=== PATIENT | female | born 1970 | race Caucasian/White ===

== ENCOUNTER 2016-10-07 15:12 | Emergency (ER) | payer OTHER ==
[~2016-10-07] VITALS: Wt 88.0 kg
[~2016-10-07 15:12] MED LIST: ACET1TAB40 PO; BENA20TA65 PO; IBUP-1542 PO; PANT40TA3 PO
[2016-10-07] MEDS ORDERED: ONDANSETRON 4 MG INJ IV STA (15:53)
[2016-10-07] MEDS ORDERED: CEFTRIAXONE 1 GM/50 ML (PMX) 50 ML IVPB STA (15:53)
[2016-10-07] MEDS ORDERED: morphine 2 MG INJ IV STA (15:53)
[2016-10-07] MEDS ORDERED: metroNIDAZOLE 500 MG/NS (PMX) 100 ML IVPB STA (15:53)
[2016-10-07] MEDS ORDERED: SOD CHLORIDE 0.9% 1,000 ML IV STA (15:53)
--- NOTE | 2016-10-07 16:06 | ERD ---
ER Documentation Chief Complaint Date/Time DATE: 10/07/16 TIME: 16:02 Chief Complaint lower abd pain HPI 46-year-old female history of hypertension, status post "tummy tuck" done in [place] in September 172016 comes in with abdominal pain for the past 2 days. Patient had the surgical procedure done on September 17 first, then about 10 days ago she went back to [place] for staple removal. Over the last 2 days she states that she has sharp pain that starts in the mid abdomen radiates diffusely and goes down her right upper leg. Patient states that they had created a new bellybutton, this was sutured however at one point it had opened and they remove the sutures. She has not noted any purulent drainage. She has been taking tramadol for the pain, which has helped but the pain has continued. Patient has not noticed any fevers, chills, vomiting. She reports positive flatulence. No blood in stools. ROS All systems reviewed and are negative except as per history of present illness. Medications Home Meds Active Scripts Ferrous Sulfate* (Ferrous Sulfate*) 325 Mg Tabec, 325 MG PO BID, #60 TAB Prov:ARTHUR PHILLIPS PA-C 10/07/16 Hydrocodone/Acetaminophen ([place] 5-325 Tablet) 1 Each Tablet, 1 TAB PO Q6H Y for PAIN, #15 TAB Prov:ARTHUR PHILLIPS PA-C 10/07/16 Metronidazole* (Flagyl*) 500 Mg Tablet, 500 MG PO TID for 7 Days, TAB Prov:ARTHUR PHILLIPS PA-C 10/07/16 Sulfamethoxazole/Trimethoprim* (Bactrim Ds* Tablet) 1 Each Tablet, 1 TAB PO BID , #14 TAB Prov:ARTHUR PHILLIPS PA-C 10/07/16 Pantoprazole* (Protonix*) 40 Mg Tablet.dr, 40 MG PO DAILY, #30 TAB Prov:VALENTINA BAUMANN MD 06/11/15 Acetaminophen-Codeine* (Acetaminophen-Cod #3*) 300-30 Mg Tab, 1 TAB PO Q4H Y for PAIN, #14 TAB Prov:VALENTINA BAUMANN MD 06/11/15 Benazepril Hcl* (Lotensin*) 20 Mg Tablet, 20 MG PO DAILY, #30 TAB Prov:VALENTINA BAUMANN MD 06/11/15 Ibuprofen* (Motrin*) 600 Mg Tab, 600 MG PO BID, #30 TAB 0 Refills Prov:BETH THOMPSON MARTHA 04/26/15 Allergies Allergies: Coded Allergies: No Known Allergy (Unverified , 07/19/13) PMhx/Soc History of Surgery: No Anesthesia Reaction: No Hx Neurological Disorder: No Hx Respiratory Disorders: No Hx Cardiac Disorders: No Hx Psychiatric Problems: No Hx Miscellaneous Medical Probl: No Hx Alcohol Use: No Hx Substance Use: No Hx Tobacco Use: No Smoking Status: Never smoker Physical Exam Vitals Vital Signs Date Time Temp Pulse Resp B/P Pulse Ox O2 Delivery O2 Flow Rate FiO2 10/07/16 15:15 98.9 78 20 155/79 97 Physical Exam General: Well-developed, well-nourished. The patient appears in no acute distress. HEENT: Head is normocephalic, atraumatic. No scleral icterus. Pupils are equal , round, and reactive. Oral mucous membranes are moist. No pharyngeal erythema. Neck: Supple. Nontender. Lungs: Clear to auscultation. Normal air movement. Heart: Regular rate and rhythm. S1 and S2 are normal. No murmurs, gallops, or rubs. Abdomen: Large scar from incision that goes from above the ASIS on the right side, all the way across the left side. There is no dehiscence, there are superficial seromas, there is one on the left lower quadrant region. Incision is clean, dry. There is also an opening, where the umbilicus was reconstructed. The depth is approximately 3 cm, the diameter is with a base of 1.5 cm, and superficially 2.5 cm. It goes to the fascia. There is no warmth or erythema, abdomen is soft. There is tenderness over the mid abdomen. No peritoneal signs, guarding. Extremities: No clubbing or cyanosis. Normal pulses. Moving extremities x 4. No weakness. Neurologic: Alert and oriented 3. No focal deficits. Skin: Normal turgor. No rash or lesions. Result Diagram: 10/07/16 1610 10/07/16 1610 Results 24 hrs Laboratory Tests Test 10/07/16 16:10 White Blood Count 6.710^3/ul Red Blood Count 3.2610^6/ul Hemoglobin 9.2g/dl Hematocrit 28.7% Mean Corpuscular Volume 88.0fl Mean Corpuscular Hemoglobin 28.2pg Mean Corpuscular Hemoglobin Concent 32.1g/dl Red Cell Distribution Width 14.6% Platelet Count 95921^3/UL Mean Platelet Volume 9.9fl Neutrophils % 64.8% Lymphocytes % 21.8% Monocytes % 8.6% Eosinophils % 3.9% Basophils % 0.3% Neutrophils # 4.310^3/ul Lymphocytes # 1.510^3/ul Monocytes # 0.610^3/ul Eosinophils # 0.310^3/ul Basophils # 0.010^3/ul Nucleated Red Blood Cells # 0.010^3/ul Urine Color YELLOW Urine Clarity CLOUDY Urine pH 5.0 Urine Specific [place] 1.021 Urine Ketones NEGATIVEmg/dL Urine Nitrite NEGATIVEmg/dL Urine Bilirubin NEGATIVEmg/dL Urine Urobilinogen NEGATIVEmg/dL Urine Leukocyte Esterase NEGATIVELeu/ul Urine Microscopic RBC 2/HPF Urine Microscopic WBC 1/HPF Urine Squamous Epithelial Cells MODERATE/HPF Urine Mucus FEW/HPF Urine Hemoglobin NEGATIVEmg/dL Urine Glucose NEGATIVEmg/dL Urine Total Protein NEGATIVEmg/dl Sodium Level 142mmol/L Potassium Level 3.8mmol/L Chloride Level 103mmol/L Carbon Dioxide Level 27mmol/L Anion Gap 16 Blood Urea Nitrogen 10mg/dl Creatinine 0.62mg/dl Glucose Level 123mg/dl Calcium Level 9.1mg/dl Total Bilirubin 0.6mg/dl Direct Bilirubin 0.00mg/dl Indirect Bilirubin 0.6mg/dl Aspartate Amino Transf (AST/SGOT) 23IU/L Alanine Aminotransferase (ALT/SGPT) 31IU/L Alkaline Phosphatase 86IU/L Total Protein 6.8g/dl Albumin 3.5g/dl Globulin 3.30g/dl Albumin/Globulin Ratio 1.06 Lipase 32U/L Current Medications Medications (Trade) Dose Ordered Sig/Alvaro Route PRN Reason Start Time Stop Time Status Last Admin Dose Admin Sodium Chloride (NS) 1,000 ml @ 1,000 mls/hr Q1H STAT IV 10/07/16 15:53 10/07/16 16:52 DC 10/07/16 16:13 Morphine Sulfate (morphine) 2 mg ONCE STAT IV 10/07/16 15:53 10/07/16 15:55 DC 10/07/16 16:14 Ondansetron HCl 4 mg 4 mg ONCE STAT IV 10/07/16 15:53 10/07/16 15:55 DC 10/07/16 16:13 Ceftriaxone Sodium 50 ml @ 100 mls/hr ONCE STAT IVPB 10/07/16 15:53 10/07/16 16:22 DC 10/07/16 16:13 Metronidazole (Flagyl 500 Mg (Pmx)) 100 ml @ 100 mls/hr ONCE STAT IVPB 10/07/16 15:53 10/07/16 16:52 DC 10/07/16 16:48 IV Flush 10 ml 10 ml STK-MED ONCE .ROUTE 10/07/16 17:51 10/07/16 17:52 DC Sodium Chloride (NS) 100 ml @ ud STK-MED ONCE .ROUTE 10/07/16 17:51 10/07/16 17:52 DC Iohexol (Omnipaque 300mg/ ml) 150 ml STK-MED ONCE .ROUTE 10/07/16 17:51 10/07/16 17:52 DC Procedures/MDM ED course: Patient was given morphine 2 mg, Zofran 4 mg IV fluid bolus of normal saline 1 L. She was started on Rocephin 1 g IV and Flagyl 500 mg IV. MDM: 46 yo female comes in with abdominal pain s/p edwar galarza, comes in with abdominal pain for 2 days. Patient has a very large abdominal incision site that is healed, there is a small seroma that is seen anteriorly, I suspect that this is superficial. She also has dehiscence of the umbilical area, they had tried to reconstruct a new umbilicus however the wound has dehisced. Does go to the fascia and I do not see any signs of deep dehiscence, intra-abdominal abscess, cellulitis, sepsis. CT of abdomen and pelvis was ordered, however currently pending and will be signed out to Los Chakraborty PA-C. She has not a follow-up appointment with her surgeon on Tuesday which is 2 days from now, she was advised to keep her appointment for reevaluation. Departure Diagnosis: Primary Impression: Postoperative external wound disruption Additional Impression: Abdominal pain Condition: ARTHUR Abebe PA-C Oct 07, 2016 16:06
[2016-10-07 16:20] LABS: ADD SCAN DIFF NO
[2016-10-07 16:29] LABS: ADD UMIC YES; BASOPHILS % 0.3 % (0.0-2.0); EOSINOPHILS # 0.3 10^3/ul (0.0-0.5); EOSINOPHILS % 3.9 % (0.0-7.0); HEMATOCRIT 28.7 % (37.0-47.0); HEMOGLOBIN 9.2 g/dl (12.0-16.0); LYMPHOCYTES # 1.5 10^3/ul (0.8-2.9); LYMPHOCYTES % 21.8 % (15.0-51.0); MEAN CORPUSCULAR HEMOGLOBIN 28.2 pg (29.0-33.0); MEAN CORPUSCULAR HGB CONC 32.1 g/dl (32.0-37.0); MEAN PLATELET VOLUME 9.9 fl (7.4-10.4); MONOCYTE # 0.6 10^3/ul (0.3-0.9); MONOCYTES % 8.6 % (0.0-11.0); NEUTROPHIL # 4.3 10^3/ul (1.6-7.5); NEUTROPHILS % 64.8 % (39.0-77.0); PLATELET COUNT 204 10^3/UL (140-415); RED BLOOD COUNT 3.26 10^6/ul (4.20-5.40); RED CELL DISTRIBUTION WIDTH 14.6 % (11.5-14.5); UR ASCORBIC ACID 20 mg/dL (NEGATIVE); UR BILIRUBIN (Dip) NEGATIVE (NEGATIVE); UR BLOOD (Dip) NEGATIVE (NEGATIVE); UR CLARITY CLOUDY (CLEAR); UR COLOR YELLOW (YELLOW); UR GLUCOSE (Dip) NEGATIVE (NEGATIVE); UR KETONES (Dip) NEGATIVE (NEGATIVE); UR LEUKOCYTE ESTERASE (Dip) NEGATIVE Leu/ul (NEGATIVE); UR MUCUS FEW /HPF (NONE SEEN); UR NITRITE (Dip) NEGATIVE (NEGATIVE); UR RBC 2 /HPF (0-5); UR SPECIFIC GRAVITY (Dip) 1.021 (1.003-1.030); UR SQUAMOUS EPITHELIAL CELL MODERATE /HPF (FEW); UR TOTAL PROTEIN (Dip) NEGATIVE (NEGATIVE); UR UROBILINOGEN (Dip) NEGATIVE (NEGATIVE); WHITE BLOOD COUNT 6.7 10^3/ul (4.8-10.8)
[2016-10-07 16:45] LABS: ALBUMIN 3.5 g/dl (3.3-4.9); ALBUMIN/GLOBULIN RATIO 1.06; BILIRUBIN,INDIRECT 0.6 mg/dl (0-1.1); BILIRUBIN,TOTAL 0.6 mg/dl (0.2-1.3); CALCIUM 9.1 mg/dl (8.4-10.2); CREATININE 0.62 mg/dl (0.44-1.00); POTASSIUM 3.8 mmol/L (3.5-5.1); TOTAL PROTEIN 6.8 g/dl (6.1-8.1)
[2016-10-07] MEDS ORDERED: IOHEXOL 300MG/ML 150 ML BTL ONE (17:51)
[2016-10-07] MEDS ORDERED: SOD CHLORIDE 0.9% 100 ML ONE (17:51)
[2016-10-07] MEDS ORDERED: FER325 PO (18:05)
[2016-10-07] MEDS ORDERED: SULF1TAB31 PO (18:05)
[2016-10-07] MEDS ORDERED: HYDR-906 PO (18:05)
[2016-10-07] MEDS ORDERED: METR500T PO (18:05)
--- NOTE | 2016-10-07 18:47 | RADRPT ---
PROCEDURE: CT abdomen and pelvis with IV contrast. CLINICAL INDICATION: Abdomen pain. TECHNIQUE: CT scan of the abdomen and pelvis was performed on a [address] scanner. The patient is scanned following the uncomplicated IV administration of 100 cc Omnipaque-300. Coronal and sagit krysta reformatted images were obtained from the axial source images. Images were reviewed on a [employer] PACS workstation. Total radiation dose: Total CTDIvol: 20.90 mGy. Total DLP: 1076 mGy-cm. One or more of the follow ing dose reduction techniques were used: automated exposure control, adjustment of the mA and/or kV according to patient size, or use of iterative reconstruction technique. COMPARISON: None available. FINDINGS: CT abdomen: The lung bases are clear. The heart is not enlarged without pericardial thickening or effusion.. There is mild hepatosplenomegaly. There is mild fatty liver without focal mass or intrahepatic bili mason dilatation. The stomach is partially collapsed but is grossly unremarkable. The pancreas as visualized is normal. This post cholecystectomy and there is no evidence of biliary dilatation. The adrenal glands are symmetrical and normal. The kidneys are symmetrically normal bilaterally. N o renal calculus or obstructive uropathy or mass lesion is seen.. The aorta is normal in caliber. There is no retroperitoneal lymphadenopathy. The jero hepatis reg ion is clear. The bowel and mesentery, as visualized, are equally unremarkable. There is 7.7 cm x 2.4 cm x 5.3 cm( CC x AP x TR) fluid collection in the mid anterior abdomen wall of the abdomen. CT pelvis: There has 7.5 cm x 2.6 cm x 9.2 cm( CC x AP x TR) fluid collection in the mid anterior abdomen wall of the pelvis. The appendix is normal in the right lower quadrant. The small bowel loops situated within the pelvis are unremarkable. The female pelvic organs are normal. The pelvic sidewalls and inguinal regions are clear. No mass, lymphadenopathy or free fluid is seen. No acute inflammation seen. The urinary bladder is normal. The surrounding osseous structures are unremarkable. No osteolytic or osteoblastic lesion is detect ed. IMPRESSION: 1. 7.7 cm x 2.4 cm x 5.3 cm( CC x AP x TR) fluid collection in the mid anterior abdomen wall of th e abdomen. 2. 7.5 cm x 2.6 cm x 9.2 cm( CC x AP x TR) fluid collection in the mid anterior abdomen wall of the pelvis. 3. Mild hepatomegaly splenomegaly. Mild fatty liver. 4. Status post cholecystectomy RPTAT: GG .Romeo Sharpe MD, Date Time Electronically viewed and signed by .Romeo Sharpe MD, on 10/07/2016 18:47 .Y/
--- NOTE | 2016-10-07 19:27 | EN ---
Date/Time of Note Date/Time of Note DATE: 10/07/16 TIME: 19:21 ER Progress Note Patient was signed out to me by KARLY Lebron pending CT abdomen and pelvis. See below ED COURSE: The patient was stable throughout ED course. I kept the patient and/or family informed of laboratory and diagnostic imaging results throughout the ED course. DIAGNOSTIC IMAGING: Read by radiologist. DIAGNOSTIC IMAGING REPORT Patient: BENITA CARRERA : 1970 Age: 46 Sex: F MR #: [id number] DOS: 10/07/16 1553 Ordering MD: ARTHUR LEBRON PA-C Location: [facility] Room/Bed: PROCEDURE: CT abdomen and pelvis with IV contrast. CLINICAL INDICATION: Abdomen pain. TECHNIQUE: CT scan of the abdomen and pelvis was performed on a [address] scanner. The patient is scanned following the uncomplicated IV administration of 100 cc Omnipaque-300. Coronal and sagittal reformatted images were obtained from the axial source images. Images were reviewed on a high-resolution PACS workstation. Total radiation dose: Total CTDIvol: 20.90 mGy. Total DLP: 1076 mGy-cm. One or more of the following dose reduction techniques were used: automated exposure control, adjustment of the mA and/or kV according to patient size, or use of iterative reconstruction technique. COMPARISON: None available. FINDINGS: CT abdomen: The lung bases are clear. The heart is not enlarged without pericardial thickening or effusion.. There is mild hepatosplenomegaly. There is mild fatty liver without focal mass or intrahepatic biliary dilatation. The stomach is partially collapsed but is grossly unremarkable. The pancreas as visualized is normal. This post cholecystectomy and there is no evidence of biliary dilatation. The adrenal glands are symmetrical and normal. The kidneys are symmetrically normal bilaterally. No renal calculus or obstructive uropathy or mass lesion is seen.. The aorta is normal in caliber. There is no retroperitoneal lymphadenopathy. The jero hepatis region is clear. The bowel and mesentery, as visualized, are equally unremarkable. There is 7.7 cm x 2.4 cm x 5.3 cm( CC x AP x TR) fluid collection in the mid anterior abdomen wall of the abdomen. CT pelvis: There has 7.5 cm x 2.6 cm x 9.2 cm( CC x AP x TR) fluid collection in the mid anterior abdomen wall of the pelvis. The appendix is normal in the right lower quadrant. The small bowel loops situated within the pelvis are unremarkable. The female pelvic organs are normal. The pelvic sidewalls and inguinal regions are clear. No mass, lymphadenopathy or free fluid is seen. No acute inflammation seen. The urinary bladder is normal. The surrounding osseous structures are unremarkable. No osteolytic or osteoblastic lesion is detected. IMPRESSION: 1. 7.7 cm x 2.4 cm x 5.3 cm( CC x AP x TR) fluid collection in the mid anterior abdomen wall of the abdomen. 2. 7.5 cm x 2.6 cm x 9.2 cm( CC x AP x TR) fluid collection in the mid anterior abdomen wall of the pelvis. 3. Mild hepatomegaly splenomegaly. Mild fatty liver. 4. Status post cholecystectomy RPTAT: GG .Romeo Sharpe MD, MD Date Time Electronically viewed and signed by .Romeo Sharpe MD, on 10/07/2016 18:47 .Y/ CC: ARTHUR LEBRON PA-C Patient is a 46-year-old female presents with lower abdominal pain. Workup was primarily completed by Arthur Lebron PA-C. She was signed out to me pending CT scan results. CT scan showed fluid collections in the mid anterior pelvis as well as abdomen. I discussed these findings with my supervising physician Dr. Stephenson. At this time, there is no indication for inpatient admission. Patient will be discharged home with antibiotics, iron supplements and pain medications as written by Arthur Lebron. Low suspicion for deep space infection, deep abscess, fistula, deep wound dehiscence. She was encouraged to follow-up with her surgeon. DISCHARGE: At this time, patient is stable for discharge and outpatient management. Patient was provided with a copy of all blood work and imaging studies obtained today. I have instructed the patient to follow-up with his/her primary care physician in 1-2 days. I have discussed with the patient the possibility of needing to see a specialist for further workup and imaging studies if symptoms persist. I have instructed the patient to promptly return to the ER for any new or worsening symptoms including increased pain, fever, nausea, vomiting, weakness or LOC. The patient and/or family expressed understanding of and agreement with this plan. All questions were answered. Home care instructions were provided. ELOISE GALLEGOS PA-C Oct 07, 2016 19:26
[2016-10-07 20:03] VITALS: BP 123/66; PULSE 70; RESP 22; TEMP 98.8
== END 2016-10-07 20:00 | disposition home or self-care (01) ==
LOC: FTE 15:12
DX: T81.31XA Disruption of external operation (surgical) wound, not elsewhere classified, initial encounter (principal); Y73.8 Miscellaneous gastroenterology and urology devices associated with adverse incidents, not elsewhere classified
CPT/HCPCS: 74177; 80053; 81001; 83690; 85025; J0696; J2270; J2405; J7030; Q9967; Z7610; 36415; 96374; 96375

== ENCOUNTER 2017-01-28 18:19 | Emergency (ER) | payer OTHER ==
[~2017-01-28] VITALS: Ht 152.4 cm; Wt 85.1 kg
[~2017-01-28 18:19] MED LIST changes: +FER325 PO; +HYDR-906 PO; +METR500T PO; +SULF1TAB31 PO
[2017-01-28 18:38] VITALS: Ht 152.4 cm; Wt 85.1 kg
[2017-01-28] MEDS ORDERED: IBUP-1542 PO (19:26)
[2017-01-28] MEDS ORDERED: SULF1TAB31 PO (19:26)
[2017-01-28] MEDS ORDERED: CEPH-443 PO (19:26)
--- NOTE | 2017-01-28 19:28 | ERD ---
ER Documentation Chief Complaint Chief Complaint wound discharge (pus like) on naval area HPI This 46-year-old female presents with some discharge and redness of her umbilicus. History significant for a abdominoplasty 6 months ago. She was fine up until a few days ago. She denies any fevers, vomiting, additional complaints. ROS All systems reviewed and are negative except as per history of present illness. Medications Home Meds Active Scripts Ibuprofen* (Motrin*) 600 Mg Tab, 600 MG PO Q6, #15 TAB Prov:VALENTINA BAUMANN MD 01/28/17 Sulfamethoxazole/Trimethoprim* (Bactrim Ds* Tablet) 1 Each Tablet, 1 TAB PO BID for 7 Days, #14 TAB Prov:VALENTINA BAUMANN MD 01/28/17 Cephalexin* (Keflex*) 500 Mg Capsule, 500 MG PO QID for 7 Days, CAP Prov:VALENTINA BAUMANN MD 01/28/17 Ferrous Sulfate* (Ferrous Sulfate*) 325 Mg Tabec, 325 MG PO BID, #60 TAB Prov:ARTHUR PHILLIPS PA-C 10/07/16 Hydrocodone/Acetaminophen ([place] 5-325 Tablet) 1 Each Tablet, 1 TAB PO Q6H Y for PAIN, #15 TAB Prov:ARTHUR PHILLIPS PA-C 10/07/16 Metronidazole* (Flagyl*) 500 Mg Tablet, 500 MG PO TID for 7 Days, TAB Prov:ARTHUR PHILLIPS PA-C 10/07/16 Sulfamethoxazole/Trimethoprim* (Bactrim Ds* Tablet) 1 Each Tablet, 1 TAB PO BID , #14 TAB Prov:ARTHUR PHILLIPS PA-C 10/07/16 Pantoprazole* (Protonix*) 40 Mg Tablet.dr, 40 MG PO DAILY, #30 TAB Prov:VALENTINA BAUMANN MD 06/11/15 Acetaminophen-Codeine* (Acetaminophen-Cod #3*) 300-30 Mg Tab, 1 TAB PO Q4H Y for PAIN, #14 TAB Prov:VALENTINA BAUMANN MD 06/11/15 Benazepril Hcl* (Lotensin*) 20 Mg Tablet, 20 MG PO DAILY, #30 TAB Prov:VALENTINA BAUMANN MD 06/11/15 Ibuprofen* (Motrin*) 600 Mg Tab, 600 MG PO BID, #30 TAB 0 Refills Prov:BETH THOMPSON PA-C 04/26/15 Allergies Allergies: Coded Allergies: No Known Allergy (Unverified , 07/19/13) PMhx/Soc History of Surgery: Yes (RT HAND CARPAL TUNNEL RELEASE//TUMMY TUCK ) Anesthesia Reaction: No Hx Neurological Disorder: No Hx Respiratory Disorders: No Hx Cardiac Disorders: Yes (HTN) Hx Psychiatric Problems: No Hx Miscellaneous Medical Probl: No (OA, GASTRITIS) Hx Alcohol Use: No Hx Substance Use: No Hx Tobacco Use: No Smoking Status: Never smoker Physical Exam Vitals Vital Signs Date Time Temp Pulse Resp B/P Pulse Ox O2 Delivery O2 Flow Rate FiO2 01/28/17 18:38 98.1 76 20 131/75 98 Physical Exam Const: [], [id number]. Head: Atraumatic Eyes: Normal Conjunctiva ENT: Normal External Ears, Nose and Mouth. Neck: Full range of motion..~ No meningismus. Resp: Clear to auscultation bilaterally Cardio: Regular rate and rhythm, no murmurs Abd: Soft, non tender, non distended. Normal bowel sounds Skin: No petechiae or rashes. Superficial redness and very superficial draining seroma of the umbilicus. There is no appreciable deep abdominal tenderness residual fluctuance. There is no rebound or significant induration. Back: No midline or flank tenderness Ext: No cyanosis, or edema Neur: Awake and alert Psych: Normal Mood and Affect Procedures/MDM She presents with signs and symptoms of a superficial infection of her umbilicus status post abdominoplasty 5 months ago. There is no signs or symptoms to suggest deep abdominal tenderness or complications such as abscess or sepsis. She will discharged home with prescription for Bactrim and Keflex instructions for wound care and primary care follow-up and return precautions. The patient was stable with no new complaints during the ER course. Clinically, there is no current evidence to suggest meningitis, sepsis, acute abdomen, pneumonia, acute coronary syndrome, pulmonary embolism, or any other emergent condition appearing to require further evaluation or hospitalization. The patient should certainly return for any new or worsening symptoms per the aftercare instructions. They should otherwise follow-up with her primary care doctor for reevaluation this week. Departure Diagnosis: Primary Impression: Encounter for wound re-check Condition: Stable Patient Instructions: Post Op Wound Check, Infection Additional Instructions: Cheque otro vez con tsang doctor primario en el proximo vila or regresa para mas o nueva simptomas- FIEBRE , VOMIT, MAS DOLOR. VALENTINA BAUMANN MD Jan 28, 2017 19:28
== END 2017-01-28 19:48 | disposition home or self-care (01) ==
LOC: FTE 18:19
DX: Z48.01 Encounter for change or removal of surgical wound dressing (principal); I10 Essential (primary) hypertension
CPT/HCPCS: 99284

== ENCOUNTER 2017-10-04 11:35 | Observation (INO) | END 2017-10-05 18:25 | disposition home or self-care (01) ==

== ENCOUNTER 2018-07-09 02:52 | Emergency (ER) | payer OTHER ==
[~2018-07-09] VITALS: Wt 86.8 kg
[~2018-07-09 02:52] MED LIST changes: -ACET1TAB40 PO; +BENA20TA4 PO; -BENA20TA65 PO; +ERGO500013 PO; -FER325 PO; -HYDR-906 PO; -IBUP-1542 PO; -METR500T PO; +OMEP20CA16 PO; -PANT40TA3 PO; -SULF1TAB31 PO
[2018-07-09] MEDS ORDERED: SOD CHLORIDE 0.9% 1,000 ML IV STA (03:39)
[2018-07-09] MEDS ORDERED: morphine 4 MG/ML VIAL IV STA (03:39)
[2018-07-09] MEDS ORDERED: ONDANSETRON 4 MG INJ IV STA (03:39)
[2018-07-09] MEDS ORDERED: IODIXANOL LOCM 100 ML BTL ONE (03:51)
[2018-07-09] MEDS ORDERED: SOD CHLORIDE 0.9% 100 ML ONE (03:51)
--- NOTE | 2018-07-09 04:35 | ERD ---
ER Documentation Chief Complaint Chief Complaint abd pain x 1 week, worse today HPI 47-year-old female presenting with abdominal pain that has been worsening over the past few days. She had an abdominoplasty a few years ago. Since then she has had problems with her umbilicus. She states that she is going back to her surgeon in [place] in a week to get her umbilicus fixed. For the past few days she has noticed some redness and pain around her umbilical area radiating to the sides of her lower abdomen. She does endorse nausea with subjective fevers and chills. No vomiting, diarrhea, constipation. Pain is constant, throbbing, 9 out of 10, without alleviating or exacerbating factors. ROS All systems reviewed and are negative except as per history of present illness. Medications Home Meds Active Scripts Cephalexin* (Keflex*) 500 Mg Capsule, 500 MG PO QID for 7 Days, CAP Prov:ESME ARNOLD MD 07/09/18 Sulfamethoxazole/Trimethoprim* (Bactrim Ds* Tablet) 1 Each Tablet, 1 TAB PO BID, #14 TAB Prov:ESME ARNOLD MD 07/09/18 Reported Medications Ergocalciferol (Vitamin D2) (VITAMIN D2) 50,000 Unit Capsule, 12617 UNIT PO EVERY TUESDAY, CAP 10/04/17 Omeprazole* (Omeprazole*) 20 Mg Capsule.dr, 20 MG PO DAILY, #30 CAP 10/04/17 Benazepril Hcl* (Benazepril Hcl*) 20 Mg Tablet, 20 MG PO DAILY, #30 TAB 10/04/17 Allergies Allergies: Coded Allergies: No Known Allergy (Unverified , 10/04/17) PMhx/Soc History of Surgery: Yes (CSECTION, CHOLECYSTECTOMY, TUMMY TUCK,CARPAL TUNNEL YANCI WRIST ) Anesthesia Reaction: No Hx Neurological Disorder: No Hx Respiratory Disorders: No Hx Cardiac Disorders: Yes (HTN) Hx Psychiatric Problems: No Hx Miscellaneous Medical Probl: No Hx Alcohol Use: No Hx Substance Use: No Hx Tobacco Use: No Smoking Status: Never smoker FmHx Family History: No diabetes Physical Exam Vitals Vital Signs Date Temp Pulse Resp B/P (MAP) Pulse Ox O2 O2 Flow FiO2 Time Delivery Rate 07/09/18 99.4 77 14 105/59 100 06:02 (74) 07/09/18 99.4 70 15 96/59 (71) 98 05:26 07/09/18 99.4 81 19 95/59 (71) 99 04:38 07/09/18 99.4 79 18 121/76 98 04:01 (91) 07/09/18 99.4 93 18 144/68 98 02:54 (93) Physical Exam Const: No acute distress Head: Atraumatic Eyes: Normal Conjunctiva ENT: Normal External Ears, Nose and Mouth. Neck: Full range of motion. No meningismus. Resp: Clear to auscultation bilaterally Cardio: Regular rate and rhythm, no murmurs Abd: Soft, non tender, non distended. Normal bowel sounds Skin: No petechiae or rashes Back: No midline or flank tenderness Ext: No cyanosis, or edema Neur: Awake and alert Psych: Normal Mood and Affect Result Diagram: 07/09/18 0345 07/09/18 0345 Results 24 hrs Laboratory Tests Test 07/09/18 03:40 07/09/18 03:45 07/09/18 03:50 Urine Color YELLOW Urine Clarity SLIGHTLY CLOUDY Urine pH 5.0 Urine Specific [place] 1.016 Urine Ketones NEGATIVE mg/dL Urine Nitrite NEGATIVE mg/dL Urine Bilirubin NEGATIVE mg/dL Urine Urobilinogen NEGATIVE mg/dL Urine Leukocyte Esterase NEGATIVE Claud[place]/ul Urine Microscopic RBC > 182 /HPF Urine Microscopic WBC 6 /HPF Urine Squamous Epithelial Cells FEW /HPF Urine Bacteria FEW /HPF Urine Granular Casts FEW /HPF Urine Mucus MODERATE /HPF Urine Hemoglobin 3+ mg/dL Urine Glucose NEGATIVE mg/dL Urine Total Protein NEGATIVE mg/dl White Blood Count 11.7 10^3/ul Red Blood Count 3.61 10^6/ul Hemoglobin 10.1 g/dl Hematocrit 31.6 % Mean Corpuscular Volume 87.5 fl Mean Corpuscular Hemoglobin 28.0 pg Mean Corpuscular 32.0 g/dl Hemoglobin Concent Red Cell Distribution Width 15.9 % Platelet Count 182 10^3/UL Mean Platelet Volume 11.1 fl Immature Granulocytes % 0.300 % Neutrophils % 78.9 % Lymphocytes % 11.8 % Monocytes % 7.8 % Eosinophils % 0.9 % Basophils % 0.3 % Nucleated Red Blood Cells % 0.0 /100WBC Immature Granulocytes # 0.030 10^3/ul Neutrophils # 9.3 10^3/ul Lymphocytes # 1.4 10^3/ul Monocytes # 0.9 10^3/ul Eosinophils # 0.1 10^3/ul Basophils # 0.0 10^3/ul Nucleated Red Blood Cells # 0.0 10^3/ul Prothrombin Time 13.4 Sec Prothrombin Time Ratio 1.0 INR International 1.01 Normalized Ratio Activated Partial Thromboplast 30.1 Sec Time Sodium Level 141 mmol/L Potassium Level 4.1 mmol/L Chloride Level 109 mmol/L Carbon Dioxide Level 24 mmol/L Anion Gap 8 Blood Urea Nitrogen 11 mg/dl Creatinine 0.77 mg/dl Est Glomerular Filtrat > 60 mL/min Rate mL/min Glucose Level 123 mg/dl Calcium Level 9.3 mg/dl Total Bilirubin 1.5 mg/dl Direct Bilirubin 0.00 mg/dl Indirect Bilirubin 1.5 mg/dl Aspartate Amino 16 IU/L Transf (AST/SGOT) Alanine 24 IU/L Aminotransferase (ALT/SGPT) Alkaline Phosphatase 91 IU/L Total Protein 6.9 g/dl Albumin 3.7 g/dl Globulin 3.20 g/dl Albumin/Globulin Ratio 1.15 POC Beta HCG, Qualitative NEGATIVE Current Medications Medications Dose Sig/Alvaro Start Time Status Last (Trade) Ordered Route PRN Stop Time Admin Dose Reason Admin Sodium 1,000 ml @ Q1H STAT 07/09/18 DC 07/09/18 Chloride 1,000 mls/hr IV 03:39 03:59 07/09/18 04:38 Morphine 4 mg ONCE STAT 07/09/18 DC 07/09/18 Sulfate IV 03:39 03:59 (morphine) 07/09/18 03:41 Ondansetron 4 mg ONCE STAT 07/09/18 DC 07/09/18 HCl (Zofran IV 03:39 03:59 Inj) 07/09/18 03:41 IV Flush 10 ml STK-MED 07/09/18 DC (NS 10 ml) ONCE .ROUTE 03:51 07/09/18 03:52 Sodium 100 ml @ ud STK-MED 07/09/18 DC Chloride ONCE .ROUTE 03:51 07/09/18 03:52 Iodixanol 100 ml STK-MED 07/09/18 DC (Visipaque ONCE .ROUTE 03:51 Locm) 07/09/18 03:52 Lidocaine/ 10 ml ONCE ONCE 07/09/18 DC Epinephrine INJ 06:00 (Xylocaine 07/09/18 06:01 1%/ Epi (Mdv)) Lidocaine 10 ml ONCE ONCE 07/09/18 DC (Xylocaine INJ 06:30 1% (Mpf)) 07/09/18 06:31 Procedures/MDM EMERGENT LABS AND DIAGNOSTIC STUDIES: Lab Results above were reviewed and interpreted by me. CBC: Mild anemia. No evidence of infection CMP: No evidence of clinically significant electrolyte abnormality, acidosis, renal failure, hypoglycemia, liver disease, or biliary obstruction UA: no evidence of infection Radiology Results as interpreted by Radiology below were reviewed by Shayy Arnold MD: CT abdomen and pelvis shows abdominal wall abscess, no intraperitoneal abnormalities Initial Nursing notes reviewed. Previous Medical Records requested via the Electronic Health Record. EMERGENCY DEPARTMENT COURSE / MEDICAL DECISION MAKING: Abscess Incision and Drainage with irrigation by me: Location: Umbilical abscess Anesthesia: Local 1% Lidocaine Technique: Irrigated. Disrupted loculations w/ instrumentation Packing: Yes half inch Complications: Neurovascularly intact post procedure 48 hour wound check. Scar minimization instructions given. Patient's skin symptoms have stabilized while they have been evaluated in the department and are appropriate for outpatient care and work up. Exam and w/u not consistent w/ sepsis or foreign body. I spoke with Dr. Cook, the surgeon on-call who recommended follow-up in his clinic in 2 days for packing removal. Patient is agreeable with this plan. She will be discharged with Keflex and Bactrim. Return precautions discussed. Patient's blood pressure was elevated (>120/80) but appears stable without evidence of hypertensive emergency or urgency. The patient was counseled about the risks of hypertension and urged to pursue outpatient monitoring and therapy within a week with their primary care physician. Departure Diagnosis: Primary Impression: Abscess of postoperative wound of abdominal wall Condition: Stable ESME ARNOLD MD Jul 09, 2018 04:35
[2018-07-09] MEDS ORDERED: LIDOCAINE 1%/EPI (MDV) 50 ML INJ INJ ONE (06:00)
[2018-07-09] MEDS ORDERED: LIDOCAINE 1% (MPF) 5 ML VIAL INJ ONE (06:30)
[2018-07-09] MEDS ORDERED: CEPH-443 PO (06:36)
[2018-07-09] MEDS ORDERED: SULF1TAB31 PO (06:36)
[2018-07-09 07:14] VITALS: BP 104/68; PULSE 76; RESP 17
== END 2018-07-09 07:45 | disposition home or self-care (01) ==
LOC: E/R 02:52
DX: L02.211 Cutaneous abscess of abdominal wall (principal); I10 Essential (primary) hypertension
CPT/HCPCS: 10060; 36415; 74177; 80053; 81001; 81025; 85025; 85610; 85730; 96374; 96375; J2270; J2405; J7030; Q9967; Z7502; Z7610

== ENCOUNTER 2018-07-11 11:06 | Emergency (ER) | payer OTHER ==
[~2018-07-11] VITALS: Ht 160 cm; Wt 92.0 kg
[~2018-07-11 11:06] MED LIST changes: +CEPH-443 PO; +SULF1TAB31 PO
[2018-07-11 11:09] VITALS: BP 113/59; PULSE 78; RESP 16; Ht 160 cm; Wt 92.0 kg
--- NOTE | 2018-07-11 15:39 | ERD ---
ER Documentation Chief Complaint Chief Complaint pt is bib self for wound check, seen here 2 days ago HPI 47-year-old female presenting for wound check. Patient was seen here 2 days ago and had an abscess drained at the umbilicus. Patient denies any fevers and is taking antibiotics. She has not followed up with the recommended physician from previous visit. Denies other medical problems. NKDA. Surgical history denies. Social history denies ROS All systems reviewed and are negative except as per history of present illness. Medications Home Meds Active Scripts Cephalexin* (Keflex*) 500 Mg Capsule, 500 MG PO QID for 7 Days, CAP Prov:ESME DAWKINS MD 07/09/18 Sulfamethoxazole/Trimethoprim* (Bactrim Ds* Tablet) 1 Each Tablet, 1 TAB PO BID, #14 TAB Prov:ESME DAWKINS MD 07/09/18 Reported Medications Ergocalciferol (Vitamin D2) (VITAMIN D2) 50,000 Unit Capsule, 67478 UNIT PO EVERY TUESDAY, CAP 10/04/17 Omeprazole* (Omeprazole*) 20 Mg Capsule.dr, 20 MG PO DAILY, #30 CAP 10/04/17 Benazepril Hcl* (Benazepril Hcl*) 20 Mg Tablet, 20 MG PO DAILY, #30 TAB 10/04/17 Allergies Allergies: Coded Allergies: No Known Allergy (Unverified , 07/11/18) PMhx/Soc History of Surgery: Yes (CSECTION, CHOLECYSTECTOMY, TUMMY TUCK,CARPAL TUNNEL [place] WRIST ) Anesthesia Reaction: No Hx Neurological Disorder: No Hx Respiratory Disorders: No Hx Cardiac Disorders: Yes (HTN) Hx Psychiatric Problems: No Hx Miscellaneous Medical Probl: No Hx Alcohol Use: No Hx Substance Use: No Hx Tobacco Use: No Smoking Status: Never smoker FmHx Family History: No diabetes, No coronary disease, No other Physical Exam Vitals Vital Signs Date Temp Pulse Resp B/P (MAP) Pulse Ox O2 O2 Flow FiO2 Time Delivery Rate 07/11/18 98.3 78 16 113/59 98 11:09 (77) Physical Exam GENERAL: The patient is well-appearing, well-nourished, in no acute distress CHEST: Clear to auscultation bilaterally. There are no rales, wheezes or rhonchi. HEART: Regular rate and rhythm. No murmurs, clicks, rubs or gallops. No S3 or S4. ABDOMEN:Soft, nontender and nondistended. Good bowel sounds. No rebound or guarding. No gross peritonitis. No gross organomegaly or masses. No Douglas sign or McBurney point tenderness. SKIN: Open wound noted in the umbilicus surrounding erythema. Packing in place. Procedures/MDM ER Course: Packing removed at the umbilicus. Packing replaced and pressure bandage applied. MDM: 47-year-old female presenting for wound check. Patient is recommended to follow-up with Dr. Guo and wound care center. Patient is not febrile and I have low suspicion for abdominal peritoneal involvement of the abscess. Patient's abdominal exam is non-concerning and she is not tender to palpation. I do not feel blood work or further imaging is indicated. Patient is recommended to continue antibiotics as present previously prescribed. All questions answered at discharge Departure Diagnosis: Primary Impression: Abscess Condition: Stable Patient Instructions: Abscess, Antiobiotic Treatment Only Referrals: Dr. Eloy Cook [facility] Additional Instructions: FOLLOW UP WITH YOUR PRIMARY CARE PHYSICIAN TOMORROW.Return to this facility if you are not improving as expected. MARLEEN ASH PA-C Jul 11, 2018 15:39
== END 2018-07-11 13:17 | disposition home or self-care (01) ==
LOC: FTE 11:06
DX: Z48.01 Encounter for change or removal of surgical wound dressing (principal); I10 Essential (primary) hypertension
CPT/HCPCS: 99281